=== PATIENT | male | born 1990 | race Hispanic/Latino ===

== ENCOUNTER 2016-12-06 02:21 | Emergency (ER) | payer SELFPAY ==
[~2016-12-06] VITALS: Ht 170.2 cm; Wt 74.8 kg
--- NOTE | 2016-12-06 03:25 | ED HAND/WRIST INJURY COMPLAINT ---
History of Present Illness General Chief Complaint: Laceration Procedure Stated Complaint: LAC TO BOTH HANDS Source: patient, family, old records Exam Limitations: language barrier Vital Signs & Intake/Output Vital Signs & Intake/Output Vital Signs Date Time Temp Pulse Resp B/P B/P Pulse O2 O2 Flow FiO2 Mean Ox Delivery Rate 12/06 0335 97.0 89 18 120/82 97 Room Air 12/06 0236 99 Room Air 12/06 0233 96.8 97 18 123/85 95 Room Air Triage Note: PT FROM HOME C/O LAC TO BILATERAL HANDS. PT HIGHLY INTOXICATED FROM ALCOHOL TONIGHT WHEN HE ARRIVED HOME AND FELL INTO THE RECYCABLE BOTTLES AND HAS LACS TO LEFT HAND (PINKY AND RING FINGER) RIGHT HAND (PINKY, RING, THUMB AND TOP OF HAND). PT ALERT NOT ORIENTED AND [place]ESE SPEAKING ONLY. PT HAS STEPDAUGHTER AND GIRLFRIEND AT BEDSIDE. BLEEDING CONTROLLED. WILL CONTINUE TO MONITOR. AWAITING PROVIDER EVAL. Triage Nurses Notes Reviewed? yes Occurred: just prior to arrival Duration: minute(s):, constant, continues in ED Timing: recent history Injury Environment: home Severity: moderate Pain/Injury Location: Bilateral: Hand. Context: fall, incision Method of Injury: fall, incised, laceration No Modifying Factors: none Associated Symptoms: GCS 15 since HPI: Patient missed drinking Nora and fell taking out the recycling sustaining several lacerations to bilateral hands. He denies other injury fever chills nausea vomiting diarrhea abdominal pain chest pain shortness of breath headache dysuria rash. Past History Travel History Traveled to [place] past 21 day No Medical History Any Pertinent Medical History? none Surgical History Surgical History: non-contributory Psychosocial History What is your primary language Armenian Tobacco Use: Never used ETOH Use: occasional use Illicit Drug Use: denies illicit drug use Family History Hx Contributory? No Review of Systems Review of Systems Constitutional: Reports: no symptoms. EENTM: Reports: no symptoms. Respiratory: Reports: no symptoms. Cardiovascular: Reports: no symptoms. GI: Reports: no symptoms. Genitourinary: Reports: no symptoms. Musculoskeletal: Reports: no symptoms. Skin: Reports: see HPI. Neurological/Psychological: Reports: see HPI. Hematologic/Endocrine: Reports: no symptoms. Immunologic/Allergic: Reports: no symptoms. All Other Systems: Reviewed and Negative Physical Exam Physical Exam General Appearance: well developed/nourished, alert, awake, anxious, mild distress Head: atraumatic, normal appearance Eyes: Bilateral: PERRL, EOMI. Ears, Nose, Throat: normal pharynx, normal ENT inspection, hearing grossly normal Neck: normal inspection, supple Cardiovascular/Respiratory: normal breath sounds, regular rate/rhythm Back: normal inspection Shoulder Left: normal range of motion, normal inspection Shoulder Right: normal range of motion, normal inspection Elbow Left: normal range of motion, normal inspection Elbow Right: normal range of motion, normal inspection Forearm Left: normal range of motion, normal inspection Forearm Right: normal range of motion, normal inspection Wrist Left: normal range of motion, normal inspection Wrist Right: normal range of motion, normal inspection Hand Left: normal range of motion, evidence of injury, 4th finger, 5th finger Hand Right: normal range of motion, evidence of injury, 1st finger, 2nd finger, 5th finger Reflexes: 2+: bicep (R), bicep (L), tricep (R), tricep (L). Neurologic/Tendon: normal sensation, normal motor functions, normal tendon functions Skin: intact, normal color, warm/dry Lymphatic: no anterior cervical gennaro Progress Differential Diagnosis: abscess, cellulitis, contusion Plan of Care: wound repair Departure Departure Time of Disposition: 322 Disposition: HOME OR SELF CARE Condition: Stable Clinical Impression Primary Impression: Laceration of hand, left Qualifiers: Encounter type: initial encounter Foreign body presence: without foreign body Qualified Code: S61.412A - Laceration without foreign body of left hand, initial encounter Secondary Impressions: Alcohol intoxication delirium Laceration of hand, right Qualifiers: Encounter type: initial encounter Foreign body presence: without foreign body Qualified Code: S61.411A - Laceration without foreign body of right hand, initial encounter Additional Instructions: Suture removal 7-10 days Departure Forms: Customer Survey General Discharge Information Procedures Laceration/Wound Repair Laceration/Wound Repair: Wound Location: upper extremity (bilateral hands) Wound's Depth, Shape: contused tissue, irregular, superficial Wound Length (cm): 11 (total) Wound Explored: clean, no foreign body removed Irrigated w/ Saline (ccs): 500 Betadine Prep? Yes Anesthesia: 1% lidocaine Volume Anesthetic (ccs): 10 Wound Repaired With: sutures Suture Size/Type: 6:0, nylon Number of Sutures: 14 (total) Layer Closure? No Sterile Dressing Applied: Yes Splint Applied? No Sling Applied? No Tetanus Status: up to date
[2016-12-06 03:35] VITALS: BP 120/82
== END 2016-12-06 03:35 ==
LOC: ERH 02:21
DX: S61.412A Laceration without foreign body of left hand, initial encounter (principal); S61.411A Laceration without foreign body of right hand, initial encounter; F10.121 Alcohol abuse with intoxication delirium; W19.XXXA Unspecified fall, initial encounter; Y92.9 Unspecified place or not applicable; Y93.9 Activity, unspecified